=== PATIENT | female | born 1975 | race African-American/Black ===

== ENCOUNTER 2020-12-15 12:40 | Inpatient (IN) ==
[2020-12-15] MEDS ORDERED: LIDOCAINE 1% 20 ML VIAL ONE (12:59)
[2020-12-15] MEDS ORDERED: MIDAZOLAM 2 MG/2 ML VIAL ONE (12:59)
[2020-12-15] MEDS ORDERED: NITROGLYCERIN DRIP 50 MG/250 ML BOTTLE IV ONE (12:59)
[2020-12-15] MEDS ORDERED: VERAPAMIL 5 MG/2 ML VIAL ONE (13:00)
[2020-12-15] MEDS ORDERED: HYDROmorphone 2 MG/1 ML VIAL ONE (13:00)
[2020-12-15] MEDS ORDERED: ENOXAPARIN 60 MG/0.6 ML SYRINGE ONE (13:27)
[2020-12-15] MEDS ORDERED: ACETAMINOPHEN 325 MG TABLET PO PRN (13:30)
[2020-12-15] MEDS ORDERED: SIMETHICONE CHEW 125 MG TABLET PO PRN (13:30)
[2020-12-15] MEDS ORDERED: BISACODYL 5 MG TABLET PO PRN (13:30)
[2020-12-15] MEDS ORDERED: NICOTINE 21 MG/24 HR PATCH TRANSDERM PRN (13:30)
[2020-12-15] MEDS ORDERED: ALUMINUM/MAGNES/SIMETH MAX STR 30 ML UDCUP PO PRN (13:30)
[2020-12-15] MEDS ORDERED: POTASSIUM CHLORIDE 20 MEQ TABLET PO PRN (13:30)
[2020-12-15] MEDS ORDERED: ZALEPLON 5 MG CAPSULE PO PRN (13:30)
[2020-12-15] MEDS ORDERED: ONDANSETRON 4 MG/2 ML VIAL IV PRN (13:30)
[2020-12-15] MEDS ORDERED: MAGNESIUM SULF RIDER 4 GM/100 ML PREMIX IV PRN (13:30)
[2020-12-15] MEDS ORDERED: LACTULOSE 20 GM/30 ML UDCUP PO PRN (13:30)
[2020-12-15] MEDS ORDERED: CALCIUM CARBONATE CHEW 500 MG TABLET PO PRN (13:30)
[2020-12-15] MEDS ORDERED: hydrALAZINE 20 MG/1 ML VIAL IV PRN (13:30)
[2020-12-15] MEDS ORDERED: MORPHINE 2 MG/1 ML SYRINGE IV PRN (13:30)
[2020-12-15] MEDS ORDERED: MAGNESIUM SULF RIDER 2 GM/50 ML PREMIX IV PRN (13:30)
[2020-12-15] MEDS ORDERED: PRASUGREL 10 MG TABLET ONE (13:32)
[2020-12-15] MEDS ORDERED: methylPREDNISolone SOD SUC 125 MG/2 ML VIAL ONE (13:33)
[2020-12-15] MEDS ORDERED: LABETALOL 20 MG/4 ML SYRINGE IV ONE ×2 (13:57→14:07)
[2020-12-15] MEDS ORDERED: NITROGLYCERIN SL 0.4 MG TABLET SL PRN (14:05)
[2020-12-15] MEDS ORDERED: carvediloL 3.125 MG TABLET PO ONE (14:11)
[2020-12-15] MEDS ORDERED: SODIUM CHLORIDE 0.9% 1,000 ML IV SCH (15:00)
[2020-12-15] MEDS: diphenhydrAMINE CAP 25 MG CAPSULE PO SCH ×2 (18:56→23:46)
[2020-12-15] MEDS ORDERED: NITROGLYCERIN DRIP 50 MG/250 ML BOTTLE IV PRN (19:33)
[2020-12-15] MEDS: carvediloL 3.125 MG TABLET PO SCH (20:25)
[2020-12-16] MEDS: diphenhydrAMINE CAP 25 MG CAPSULE PO SCH ×4 (05:31→23:38)
[2020-12-16 05:58] LABS: Basophils % 0.1 % (0.0-0.8); Hematocrit 35.5 VOL% (35.7-47.0); Hemoglobin 11.3 GM/DL (12.0-16.0); Immature Granulocytes % 0.4 %; Immature Granulocytes Absolute 0.03 #; Lymphocytes # 1.6 10*3/uL (1.4-4.0); Lymphocytes % 19.5 % (21.3-54.2); Mean Corpuscular HGB Conc 31.8 GM/DL (32-36); Mean Corpuscular Volume 89.4 FL (87-102); Mean Platelet Volume 12.9 FL (9.6-12.0); Monocytes % 8.8 % (1.7-12.7); Neutrophils % 71.2 % (38.7-73.9); Platelet Count 167 T/CUMM (130-400); Red Blood Count 3.97 MC/CUMM (3.8-5.5); Red Cell Distribution Width 15.3 % (9.3-17.3); White Blood Count 8.3 T/CUMM (4-12)
[2020-12-16 06:42] LABS: Bilirubin,Total 0.6 MG/DL (0.20-1.00); Osmolality,Calculated 277.7 MOS/KG (273-304); Potassium 4.3 MMOL/L (3.5-5.1); Risk Ratio 4.77; Thyroid Stimulating Hormone 0.434 uIU/ml (0.358-3.74); Total Protein 7.4 G/DL (6.4-8.2); VLDL Cholesterol 39.6 MG/DL
[2020-12-16] MEDS: PANTOPRAZOLE 40 MG TABLET PO SCH (08:40)
[2020-12-16] MEDS: carvediloL 3.125 MG TABLET PO SCH ×2 (08:40→21:19)
[2020-12-16] MEDS: ASPIRIN EC 81 MG TABLET PO SCH (08:40)
[2020-12-16] MEDS: PRASUGREL 10 MG TABLET PO SCH (08:40)
[2020-12-16] MEDS ORDERED: ENOXAPARIN 40 MG/0.4 ML SYRINGE SUBCUT SCH (09:00)
[2020-12-16] MEDS ORDERED: DICLOFENAC 1% GEL 100 GM TUBE TOP PRN (09:07)
[2020-12-16] MEDS ORDERED: LOPERAMIDE 2 MG CAPSULE PO PRN (09:07)
[2020-12-16] MEDS: amLODIPine 5 MG TABLET PO SCH (09:15)
[2020-12-16] MEDS: TOPIRAMATE 100 MG TABLET PO SCH ×2 (09:16→21:19)
[2020-12-16] MEDS: MONTELUKAST 10 MG TABLET PO SCH (09:16)
[2020-12-16] MEDS: ROSUVASTATIN 20 MG TABLET PO SCH (21:19)
[2020-12-17] MEDS: diphenhydrAMINE CAP 25 MG CAPSULE PO SCH ×2 (06:14→11:18)
[2020-12-17 06:23] LABS: Basophils % 0.3 % (0.0-0.8); Eosinophils % 0.3 % (0.00-10.9); Hematocrit 33.9 VOL% (35.7-47.0); Hemoglobin 10.9 GM/DL (12.0-16.0); Immature Granulocytes % 0.3 %; Immature Granulocytes Absolute 0.03 #; Lymphocytes # 2.4 10*3/uL (1.4-4.0); Lymphocytes % 27.6 % (21.3-54.2); Mean Corpuscular HGB Conc 32.2 GM/DL (32-36); Mean Corpuscular Volume 89.7 FL (87-102); Mean Platelet Volume 12.9 FL (9.6-12.0); Neutrophils % 62.5 % (38.7-73.9); Platelet Count 162 T/CUMM (130-400); Red Blood Count 3.78 MC/CUMM (3.8-5.5); Red Cell Distribution Width 15.5 % (9.3-17.3); White Blood Count 8.6 T/CUMM (4-12)
[2020-12-17 06:35] LABS: Calcium 9.1 MG/DL (8.5-10.1); Osmolality,Calculated 279.5 MOS/KG (273-304)
[2020-12-17] MEDS: ASPIRIN EC 81 MG TABLET PO SCH (09:10)
[2020-12-17] MEDS: amLODIPine 5 MG TABLET PO SCH (09:10)
[2020-12-17] MEDS: TOPIRAMATE 100 MG TABLET PO SCH ×2 (09:10→21:00)
[2020-12-17] MEDS: PRASUGREL 10 MG TABLET PO SCH (09:10)
[2020-12-17] MEDS: PANTOPRAZOLE 40 MG TABLET PO SCH (09:11)
[2020-12-17] MEDS: MONTELUKAST 10 MG TABLET PO SCH (09:11)
[2020-12-17] MEDS: carvediloL 3.125 MG TABLET PO SCH (09:11)
[2020-12-17] MEDS ORDERED: OLMESARTAN 5 MG TABLET PO ONE (10:52)
[2020-12-17] MEDS: ROSUVASTATIN 20 MG TABLET PO SCH (21:00)
[2020-12-18 05:58] LABS: Basophils % 0.4 % (0.0-0.8); Eosinophils # 0.1 10*3/uL (0.0-0.87); Hematocrit 34.8 VOL% (35.7-47.0); Hemoglobin 10.8 GM/DL (12.0-16.0); Immature Granulocytes % 0.3 %; Immature Granulocytes Absolute 0.02 #; Lymphocytes # 1.8 10*3/uL (1.4-4.0); Mean Corpuscular Volume 90.4 FL (87-102); Mean Platelet Volume 12.8 FL (9.6-12.0); Monocytes % 7.3 % (1.7-12.7); Platelet Count 168 T/CUMM (130-400); Red Blood Count 3.85 MC/CUMM (3.8-5.5); Red Cell Distribution Width 15.2 % (9.3-17.3); White Blood Count 7.3 T/CUMM (4-12)
[2020-12-18 06:20] LABS: Anisocytosis 1+; Band Neutrophils 4 % (0-10); Eosinophils 2 % (0-10); Lymphocytes 22 % (20-55); Macrocytosis Slight; Platelet Estimate Normal; Segmented Neutrophils 65 % (50-85); Total Cells Counted 100
[2020-12-18 06:38] LABS: Calcium 9.4 MG/DL (8.5-10.1); Osmolality,Calculated 280.4 MOS/KG (273-304); Potassium 3.7 MMOL/L (3.5-5.1)
[2020-12-18] MEDS: PANTOPRAZOLE 40 MG TABLET PO SCH (08:39)
[2020-12-18] MEDS: PRASUGREL 10 MG TABLET PO SCH (08:39)
[2020-12-18] MEDS: amLODIPine 5 MG TABLET PO SCH (08:39)
[2020-12-18] MEDS: TOPIRAMATE 100 MG TABLET PO SCH ×2 (08:39→22:09)
[2020-12-18] MEDS: ASPIRIN EC 81 MG TABLET PO SCH (08:39)
[2020-12-18] MEDS: METOPROLOL SUCCINATE XL 25 MG TABLET PO SCH (08:39)
[2020-12-18] MEDS: MONTELUKAST 10 MG TABLET PO SCH (08:39)
[2020-12-18] MEDS: OLMESARTAN 5 MG TABLET PO SCH (08:39)
[2020-12-18] MEDS: ROSUVASTATIN 20 MG TABLET PO SCH (22:09)
[2020-12-19 04:47] LABS: Basophils % 0.5 % (0.0-0.8); Eosinophils # 0.1 10*3/uL (0.0-0.87); Eosinophils % 1.8 % (0.00-10.9); Hematocrit 33.1 VOL% (35.7-47.0); Hemoglobin 10.6 GM/DL (12.0-16.0); Immature Granulocytes % 0.2 %; Immature Granulocytes Absolute 0.01 #; Lymphocytes # 1.4 10*3/uL (1.4-4.0); Mean Corpuscular Volume 88.7 FL (87-102); Monocytes % 8.7 % (1.7-12.7); Neutrophils % 67.8 % (38.7-73.9); Platelet Count 166 T/CUMM (130-400); Red Blood Count 3.73 MC/CUMM (3.8-5.5); Red Cell Distribution Width 14.9 % (9.3-17.3); White Blood Count 6.5 T/CUMM (4-12)
[2020-12-19 05:00] LABS: Osmolality,Calculated 278.5 MOS/KG (273-304)
[2020-12-19] MEDS: MONTELUKAST 10 MG TABLET PO SCH (08:53)
[2020-12-19] MEDS: ASPIRIN EC 81 MG TABLET PO SCH (08:53)
[2020-12-19] MEDS: amLODIPine 5 MG TABLET PO SCH (08:53)
[2020-12-19] MEDS: TOPIRAMATE 100 MG TABLET PO SCH ×2 (08:53→21:47)
[2020-12-19] MEDS: OLMESARTAN 5 MG TABLET PO SCH (08:53)
[2020-12-19] MEDS: PANTOPRAZOLE 40 MG TABLET PO SCH (08:53)
[2020-12-19] MEDS: METOPROLOL SUCCINATE XL 25 MG TABLET PO SCH (08:53)
[2020-12-19] MEDS: PRASUGREL 10 MG TABLET PO SCH (08:53)
[2020-12-19] MEDS ORDERED: SODIUM CHLORIDE 0.9% 1,000 ML IV SCH (11:30)
[2020-12-19] MEDS ORDERED: DIAZEPAM 5 MG TABLET PO ONE (12:00)
[2020-12-19] MEDS ORDERED: diphenhydrAMINE CAP 25 MG CAPSULE PO ONE (12:00)
[2020-12-19] MEDS ORDERED: methylPREDNISolone SOD SUC 125 MG/2 ML VIAL ONE (14:38)
[2020-12-19] MEDS ORDERED: MIDAZOLAM 2 MG/2 ML VIAL ONE ×2 (14:38→15:05)
[2020-12-19] MEDS ORDERED: HYDROmorphone 2 MG/1 ML VIAL ONE ×2 (14:38→15:06)
[2020-12-19] MEDS ORDERED: VERAPAMIL 5 MG/2 ML VIAL ONE (14:38)
[2020-12-19] MEDS ORDERED: ENOXAPARIN 30 MG/0.3 ML SYRINGE ONE (15:32)
[2020-12-19] MEDS ORDERED: ENOXAPARIN 60 MG/0.6 ML SYRINGE ONE (15:32)
[2020-12-19] MEDS: ROSUVASTATIN 20 MG TABLET PO SCH (21:47)
[2020-12-20 08:15] VITALS: BP 124/84
[2020-12-20] MEDS: amLODIPine 5 MG TABLET PO SCH (09:39)
[2020-12-20] MEDS: OLMESARTAN 5 MG TABLET PO SCH (09:39)
[2020-12-20] MEDS: PANTOPRAZOLE 40 MG TABLET PO SCH (09:39)
[2020-12-20] MEDS: PRASUGREL 10 MG TABLET PO SCH (09:39)
[2020-12-20] MEDS: ASPIRIN EC 81 MG TABLET PO SCH (09:39)
[2020-12-20] MEDS: TOPIRAMATE 100 MG TABLET PO SCH (09:40)
[2020-12-20] MEDS: MONTELUKAST 10 MG TABLET PO SCH (09:40)
[2020-12-20] MEDS: METOPROLOL SUCCINATE XL 25 MG TABLET PO SCH (09:40)
== END 2020-12-20 13:30 | disposition home or self-care (01) | DRG 247 ==
LOC: N.ED 12:40 → N.EDINP 13:00 → N.ICU 15:05 → N.TELEN 12-16 09:42
PROVIDERS: ADMIT Internal Medicine Cardiovascular Disease; ATTEND Internal Medicine Cardiovascular Disease
PROC: CLCCHCL (ICD-10-PCS; 2020-12-15 13:45)